=== PATIENT | male | born 1945 | race Caucasian/White ===

== ENCOUNTER 2018-02-09 13:00 | Inpatient (IN) ==
[2018-02-09] MEDS ORDERED: Melatonin 3 MG TABLET PO PRN (13:46)
[2018-02-09] MEDS ORDERED: Dextrose Gel 15 GM PO PRN ×2 (13:50)
[2018-02-09] MEDS ORDERED: *HR* Dextrose 50 % in Water (Syg) 50 ML SYRINGE IVP PRN (13:50)
[2018-02-09] MEDS ORDERED: D5% in Water 1,000 ML IVC PRN (13:50)
[2018-02-09] MEDS: PILOCARPINE 1% BOTH EYES SCH ×2 (16:06→20:32)
[2018-02-09] MEDS: OPTH BOTH EYES SCH ×2 (16:06→20:32)
[2018-02-09] MEDS: *HR* Warfarin 5 MG TABLET PO SCH (17:30)
[2018-02-09] MEDS: Calcium Acetate 667 MG CAPSULE PO SCH (17:31)
[2018-02-09] MEDS: *HR* GlipiZIDE 5 MG TABLET PO SCH (17:31)
--- NOTE | 2018-02-09 18:39 | Internal Med History&Physical ---
Date of Encounter: 02/09/18 Time of Encounter: 18:00 Assessment and Plan (1) Hepatocellular carcinoma Current visit: Yes Status: Acute As per oncology (2) Atrial fibrillation Current visit: Yes Status: Chronic Continue metoprolol and Coumadin Qualifiers: Atrial fibrillation type: chronic Qualified Code(s): I48.2 - Chronic atrial fibrillation (3) Hypertension Current visit: Yes Status: Chronic Continue metoprolol, verapamil, and Hytrin Qualifiers: Hypertension type: essential hypertension Qualified Code(s): I10 - Essential (primary) hypertension (4) DM type 2 (diabetes mellitus, type 2) Current visit: Yes Status: Chronic Continue Levemir and Accu-Cheks with SSI Qualifiers: Diabetes mellitus terminal clerk insulin use: unspecified terminal clerk insulin use status Diabetes mellitus complication status: with kidney complications Diabetes mellitus complication detail: with chronic kidney disease Chronic kidney disease stage: on chronic dialysis Qualified Code(s): E11.22 - Type 2 diabetes mellitus with diabetic chronic kidney disease; N18.6 - End stage renal disease; N18.6 - End stage renal disease; N18.6 - End stage renal disease; N18.6 - End stage renal disease; Z99.2 - Dependence on renal dialysis; Z99.2 - Dependence on renal dialysis; Z99.2 - Dependence on renal dialysis; Z99.2 - Dependence on renal dialysis (5) CKD (chronic kidney disease) stage V requiring chronic dialysis Current visit: Yes Status: Acute Continue MWF dialysis (6) CHF (congestive heart failure) Current visit: Yes Status: Chronic LVEF of 20-25%. Continue LifeVest.. Continue Toprol and aspirin. Qualifiers: Heart failure type: systolic Heart failure chronicity: chronic Qualified Code(s): I50.22 - Chronic systolic (congestive) heart failure Internal Medicine - H&P: HPI Chief complaint: Liver cancer Admitted From: Hospital to Hospital Transfer Plans for Post Hospital Care: Home History of present illness: Mr. Hernandez is a 72 year old male who was transferred from [facility] to [facility] swing bed for ongoing care needs after admission for nausea vomiting and abdominal pain. He had CT-guided biopsy 01/15/2018 of liver nodules which showed moderately differentiated hepatocellular carcinoma. He was seen by oncology. Chemotherapy has not been initiated. No metastases were seen on CT/MRI of brain or CT abdomen. His nausea and vomiting improved and he was discharged to [facility] swing bed for rehabilitation therapy. He is a fair to poor historian. He does not remember being seen by oncology or gastroenterology. He denies history of hepatitis or alcoholism. He denies other disorders of his liver gallbladder or exocrine pancreas. Past Med Surg Social Fam HX - Past Medical History Medical history: atrial fibrillation, cancer, CHF, coronary artery disease, diabetes, glaucoma, hypertension, renal disease Psychiatric history: no psych history - Past Surgical History Surgical History: coronary bypass (CABG), other - Social History Smoking Status: Never smoker Smokeless Tobacco Status: No Alcohol use: none Drug use: none Internal Medicine - H&P: Meds Bimatoprost [Lumigan] 2.5 ml OP HS 03/01/16 [History] Calcium Carb, Citrate/Vit D3 [Calcium + D3 ER Tablet] 1 each PO BID 03/01/16 [ History] Paroxetine HCl [Paroxetine] 40 mg PO DAILY 03/01/16 [History] Simvastatin [Zocor] 40 mg PO HS 03/01/16 [History] Timolol [Betimol] 5 ml OP BID 03/01/16 [History] Warfarin [Coumadin] 5 mg PO 1800 03/01/16 [History] Ferrous Sulfate [Iron] 325 mg PO DAILY 11/08/16 [History] Pantoprazole Sodium [Protonix] 40 mg PO DAILY 11/08/16 [History] Sodium Bicarbonate 650 mg PO TID 11/08/16 [History] Terazosin [Hytrin] 5 mg PO HS 11/08/16 [History] Acetaminophen [Tylenol] 500 mg PO ONCE PRN 01/12/18 [History] Enoxaparin [Lovenox] 100 mg SQ BID 01/12/18 [History] Insulin Glargine,Hum.rec.anlog [Basaglar Kwikpen U-100] 20 unit SQ DAILY [History] Metoprolol [Lopressor] 100 mg PO BID 01/12/18 [History] Pilocarpine 1% OPTH [Isopto Carpine] 1 drop BOTH EYES TID 01/12/18 [History] Sucralfate [Carafate] 1 gm PO ACHS 01/12/18 [History] glipiZIDE [Glucotrol] 5 mg PO BIDWM 01/12/18 [History] 3 Allergy/AdvReac Type Severity Reaction Status Date / Time baclofen Allergy Hallucinati Verified 01/12/18 13:02 ng All Systems PM: A 10-system review of systems was performed and is negative for pertinent findings except as documented above in the HPI. Review of systems: Gen.: He states his weight has been stable the past few months Cardiovascular: He has history of hypertension and ASHD status post VT approximately 1999. He reports two-vessel CABG surgery and 3 stents approximately 2004. He has chronic atrial fibrillation. He denies DVT or pulmonary embolus. He is wearing a LifeVest but does not know the diagnosis for it. Available records show LVEF 20-25 %. 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 He denies large distribution strokes or seizures. Endocrine: He was diagnosed with DM 2 approximately 2002. He denies thyroid disease or hyperlipidemia Hematology/oncology: He has hepatocellular cancer as per above. He denies other internal malignancies or blood disorders Psychiatric: He denies anxiety depression or other mental health issues [place] skeletal: He denies arthritis gout or other bone joint or muscle disorders. - Constitutional Vitals: Temp Pulse Resp BP Pulse Ox 97.5 F L 52 18 127/81 97 02/09/18 17:37 02/09/18 17:37 02/09/18 17:37 02/09/18 17:37 02/09/18 17:37 Exam: Gen.: He is well-developed well-nourished male sitting in a chair at bedside who appears comfortable and in no acute distress HEENT: Head is atraumatic and normocephalic. Eyes: He has a disconjugate gaze. There is no scleral icterus. EOMI. Mouth: Mucosa is moist. Neck: There is no thyromegaly or adenopathy noted. Heart: Irregularly irregular without murmurs or gallops Chest: He is wearing a LifeVest which I did not remove. Abdomen: Soft and nontender. Lungs: No wheezes or crackles are heard. Extremities: There is no cyanosis edema or clubbing noted. Dorsalis pedis and posttibial pulses are trace palpable bilaterally. Neurologic: Mental status: He is talkative and a fair historian at best. He does not remember a significant number of details of his past history. Cranial nerves: Smile is symmetric. Forehead wrinkles bilaterally. Tongue protrudes midline. EOMI with underlying disconjugate gaze. Motor: There is no pronator drift. Cerebellar: Finger to nose is intact bilaterally. Skin: Warm and dry
[2018-02-09] MEDS: Metoprolol XL (24 HR) Succ 50 MG TAB.ER.24H PO SCH (20:23)
[2018-02-09] MEDS: Latanoprost 2.5 ML BOTTLE BOTH EYES SCH (20:31)
[2018-02-09] MEDS: Insulin DETEMIR 100 UNIT/ML X5UNITS SQ SCH (20:33)
[2018-02-10] MEDS ORDERED: Aspirin 81 MG TAB.CHEW PO SCH (09:00)
[2018-02-10] MEDS ORDERED: NON-FORMULARY MEDICATION 1 EACH EACH PO SCH (09:00)
[2018-02-10] MEDS: OPTH BOTH EYES SCH ×3 (09:18→20:19)
[2018-02-10] MEDS: Calcium Acetate 667 MG CAPSULE PO SCH ×3 (09:18→17:18)
[2018-02-10] MEDS: PILOCARPINE 1% BOTH EYES SCH ×3 (09:18→20:19)
[2018-02-10] MEDS: Metoprolol XL (24 HR) Succ 50 MG TAB.ER.24H PO SCH ×2 (09:18→19:24)
[2018-02-10] MEDS: *HR* GlipiZIDE 5 MG TABLET PO SCH (09:37)
--- NOTE | 2018-02-10 10:21 | Internal Med Progress Note ---
Date of Encounter: 02/10/18 Time of Encounter: 10:14 - Assessment and plan (1) Hepatocellular carcinoma Current Visit: Yes Status: Acute Assessment and plan: February 10. As per oncology (2) Atrial fibrillation Current Visit: Yes Status: Chronic Assessment and plan: February 10. Continue Coumadin, metoprolol, and verapamil. We will change verapamil to ER 240 mg qd. Qualifiers: Atrial fibrillation type: chronic Qualified Code(s): I48.2 - Chronic atrial fibrillation (3) Hypertension Current Visit: Yes Status: Chronic Assessment and plan: February 10. Continue metoprolol, verapamil, and Hytrin Qualifiers: Hypertension type: essential hypertension Qualified Code(s): I10 - Essential (primary) hypertension (4) DM type 2 (diabetes mellitus, type 2) Current Visit: Yes Status: Chronic Assessment and plan: February 10. He had hypoglycemia this morning. Glucotrol will be discontinued. Continue Levemir and Accu-Cheks with SSI. We will check hemoglobin A1c in a.m. Qualifiers: Diabetes mellitus half-way insulin use: unspecified intermodal dispatcher insulin use status Diabetes mellitus complication status: with kidney complications Diabetes mellitus complication detail: with chronic kidney disease Chronic kidney disease stage: on chronic dialysis Qualified Code(s): E11.22 - Type 2 diabetes mellitus with diabetic chronic kidney disease; N18.6 - End stage renal disease; N18.6 - End stage renal disease; N18.6 - End stage renal disease; N18.6 - End stage renal disease; Z99.2 - Dependence on renal dialysis; Z99.2 - Dependence on renal dialysis; Z99.2 - Dependence on renal dialysis; Z99.2 - Dependence on renal dialysis (5) CKD (chronic kidney disease) stage V requiring chronic dialysis Current Visit: Yes Status: Acute Assessment and plan: February 10. Continue MWF dialysis (6) CHF (congestive heart failure) Current Visit: Yes Status: Chronic Assessment and plan: February 10. LVEF of 20-25%. Continue Toprol and life vest. Qualifiers: Heart failure type: systolic Heart failure chronicity: chronic Qualified Code(s): I50.22 - Chronic systolic (congestive) heart failure - Subjective Interval history: February 10. He has no new complaints. He denies pain or dyspnea. - Constitutional Vitals: Temp Pulse Resp BP Pulse Ox 98.2 F 86 18 179/89 93 02/10/18 03:47 02/10/18 06:54 02/10/18 06:54 02/10/18 06:54 02/10/18 06:54 Exam: He is resting comfortably in bed and appears in no acute distress. He is lethargic and fell asleep during my visit. I reviewed his medications and lab results. Consult Discharge Plan - Plan Referrals: Kyle Simon DO [Primary Care Provider] - 1 week
[2018-02-10] MEDS ORDERED: Verapamil ER (24 HR) 240 MG TABLET.ER PO SCH (10:30)
[2018-02-10] MEDS: *HR* Warfarin 5 MG TABLET PO SCH (17:18)
[2018-02-10] MEDS: Latanoprost 2.5 ML BOTTLE BOTH EYES SCH (20:20)
[2018-02-10] MEDS: Insulin DETEMIR 100 UNIT/ML X5UNITS SQ SCH (20:23)
[2018-02-11] MEDS ORDERED: Insulin LISPRO 300 UNITS/3 ML VIAL SQ ONE (02:47)
[2018-02-11] MEDS ORDERED: Calcium Gluconate 1,000 MG/10 ML VIAL IVPB ONE (02:49)
[2018-02-11 03:25] LABS: ABG Base Excess -8 mEq/L (-2 to 3); ABG HCO3 15 mEq/L (21-27); ABG Oxygen Saturation 98 % (95-98); ABG PCO2 25 mmHg (35-45); ABG PH 7.39 pH Units (7.32-7.45); ABG PO2 96 mmHg (85-104); ABG TCO2 16 mEq/L (20-26)
[2018-02-11 03:35] LABS: Basophils % 0.3 %; Eosinophils % 0.1 %; Hematocrit 36.8 % (37.5-50.1); Hemoglobin 11.5 g/dL (12.9-16.9); Immature Granulocytes % 3.9 % (0-4); Lymphocytes # 0.9 K/mcL (0.6-4.6); Mean Corpuscular HGB Conc 31.3 g/dL (31.6-35.5); Mean Corpuscular Hemoglobin 29.9 pg (28.0-33.3); Mean Corpuscular Volume 95.8 fL (83.0-100.0); Mean Platelet Volume 11.7 fL (9.4-12.4); Monocytes # 0.9 K/mcL (0.0-1.3); Monocytes % 6.5 %; Neutrophils # 10.9 K/mcL (1.6-8.9); Nucleated Red Blood Cells 0.6 /100 WBC (0); Platelet Count 196 K/mcL (140-400); Red Blood Count 3.84 M/mcL (4.19-5.50); Segmented Neutrophils % 82.2 %
[2018-02-11 03:47] LABS: Prothrombin Time 60.4 Seconds (9.4-12.1)
[2018-02-11 03:48] LABS: INR 5.4
[2018-02-11 04:34] LABS: Potassium 6.6 mEq/L (3.5-5.1)
[2018-02-11 04:35] LABS: Calcium 9.4 mg/dL (8.6-10.3)
[2018-02-11 05:25] VITALS: BP 91/48
[2018-02-11 08:55] LABS: Estimated Average Glucose 192 mg/dl; Hemoglobin A1C 8.3 %
[2018-02-11 09:20] LABS: % Iron Saturation 43 % (20-55); Ferritin > 1350 ng/ml (20-250); Iron 132 mcg/dL (65-175); Transferrin 217 mg/dL (203-362)
[2018-02-11 09:42] LABS: Folate > 22.3 ng/mL (3.0-16.0); Vitamin B12 > 1500 pg/mL (250-1100)
--- NOTE | 2018-02-11 09:49 | Discharge Summary ---
Orders not resulted at time of discharge: Pending orders 02/11/18 02:43 ECG 12 lead ECG [ECG] Stat 02/11/18 03:32 ECG 12 lead ECG [ECG] Stat Date of Encounter: 02/11/18 Time of Encounter: 09:43 - Discharge Diagnosis (1) Hepatocellular carcinoma Priority: Primary Status: Acute (2) Atrial fibrillation Priority: Secondary Status: Chronic Qualifiers: Atrial fibrillation type: chronic Qualified Code(s): I48.2 - Chronic atrial fibrillation (3) Hypertension Priority: Secondary Status: Chronic Qualifiers: Hypertension type: essential hypertension Qualified Code(s): I10 - Essential (primary) hypertension (4) DM type 2 (diabetes mellitus, type 2) Priority: Secondary Status: Chronic Qualifiers: Diabetes mellitus half-way insulin use: unspecified half-way insulin use status Diabetes mellitus complication status: with kidney complications Diabetes mellitus complication detail: with chronic kidney disease Chronic kidney disease stage: on chronic dialysis Qualified Code(s): E11.22 - Type 2 diabetes mellitus with diabetic chronic kidney disease; N18.6 - End stage renal disease; N18.6 - End stage renal disease; N18.6 - End stage renal disease; N18.6 - End stage renal disease; Z99.2 - Dependence on renal dialysis; Z99.2 - Dependence on renal dialysis; Z99.2 - Dependence on renal dialysis; Z99.2 - Dependence on renal dialysis (5) CKD (chronic kidney disease) stage V requiring chronic dialysis Priority: Secondary Status: Acute (6) CHF (congestive heart failure) Priority: Secondary Status: Chronic Qualifiers: Heart failure type: systolic Heart failure chronicity: chronic Qualified Code(s): I50.22 - Chronic systolic (congestive) heart failure Hospital course: Mr. Hernandez is a 72 year old male who was transferred from [facility] to [facility] swing bed for ongoing care needs after admission for nausea vomiting and abdominal pain. He had CT-guided biopsy 01/15/2018 of liver nodules which showed moderately differentiated hepatocellular carcinoma. He was seen by oncology. Chemotherapy has not been initiated. No metastases were seen on CT/MRI of brain or CT abdomen. His nausea and vomiting improved and he was discharged to [facility] swing bed for rehabilitation therapy. Initial orders were written by the discharging physicians at [facility]. I saw him on February 09 and performed a swing bed history and physical. When I saw him on February 10 he had no new complaints and felt well. In the director of early childhood education hours of February 11 he was noted to have significant bradycardia and decrease in blood pressure. Rapid response was called and the ER physician administered empiric treatment for hyperkalemia. He also had decrease in blood pressure from previous levels. I was notified and felt the patient was likely developing sepsis. Because of his need for regular hemodialysis I felt he needed urgent transfer. Contact was made with [facility] and he was accepted as a direct transfer to the ICU there. - Time Spent with Patient Total time spent providing and/or coordinating discharge services: - Discharge Medications Home Medications: Bimatoprost [Lumigan] 2.5 ml OP HS 03/01/16 [History] Calcium Carb, Citrate/Vit D3 [Calcium + D3 ER Tablet] 1 each PO BID 03/01/16 [ History] Paroxetine HCl [Paroxetine] 40 mg PO DAILY 03/01/16 [History] Simvastatin [Zocor] 40 mg PO HS 03/01/16 [History] Timolol [Betimol] 5 ml OP BID 03/01/16 [History] Warfarin [Coumadin] 5 mg PO 1800 03/01/16 [History] Ferrous Sulfate [Iron] 325 mg PO DAILY 11/08/16 [History] Pantoprazole Sodium [Protonix] 40 mg PO DAILY 11/08/16 [History] Sodium Bicarbonate 650 mg PO TID 11/08/16 [History] Terazosin [Hytrin] 5 mg PO HS 11/08/16 [History] Acetaminophen [Tylenol] 500 mg PO ONCE PRN 01/12/18 [History] Enoxaparin [Lovenox] 100 mg SQ BID 01/12/18 [History] Insulin Glargine,Hum.rec.anlog [Basaglar Kwikpen U-100] 20 unit SQ DAILY [History] Metoprolol [Lopressor] 100 mg PO BID 01/12/18 [History] Pilocarpine 1% OPTH [Isopto Carpine] 1 drop BOTH EYES TID 01/12/18 [History] Sucralfate [Carafate] 1 gm PO ACHS 01/12/18 [History] glipiZIDE [Glucotrol] 5 mg PO BIDWM 01/12/18 [History] Allergies/Adverse Reactions: 3 Allergy/AdvReac Type Severity Reaction Status Date / Time baclofen Allergy Hallucinati Verified 01/12/18 13:02 ng Date of admission: 02/09/18 13:00 Primary care physician: Kyle Simon, Consults: 02/09/18 13:27 Consult to Occupational Therapy [CONS] Routine Comment: Evaluate, Develop, and Implement Plan of Care Reason for Consult: Evaluate, Develop, and Implement Plan of Care Does patient have active BEDREST order?: No Is patient medically & hemodynamically stable?: Yes Patient assessed for mobility or mobilized this visit?: No Consult to Physical Therapy [CONS] Routine Comment: Evaluate, Develop, and Implement Plan of Care Reason for Consult: Evaluate, Develop, and Implement Plan of Care Does patient have active BEDREST order?: No Is patient medically & hemodynamically stable?: Yes Patient assessed for mobility or mobilized this visit?: No Consult to Arts Administrator [CONS] Routine Reason for SW Consult: Discharge Planning - Constitutional Vitals: Temp Pulse Resp BP Pulse Ox 97.3 F L 49 28 91/48 99 02/11/18 05:22 02/11/18 05:22 02/11/18 05:23 02/11/18 05:22 02/11/18 05:23 - Patient Status Disposition: Transfer Short-Term Hosp Condition: Critical - Discharge Instructions Follow Up With: Kyle Simon DO [Primary Care Provider] - 1 week
== END 2018-02-11 05:55 | disposition short-term general hospital (02) | DRG 555 ==
LOC: INPPIK 13:00
PROVIDERS: ADMIT Internal Medicine; ATTEND Internal Medicine